=== PATIENT | male | born 1960 | race Caucasian/White ===

== ENCOUNTER 2019-05-09 10:24 | Emergency (ER) | payer SELFPAY ==
[~2019-05-09] VITALS: Ht 175.3 cm; Wt 108.9 kg
--- OUTSIDE RECORDS SUMMARY | 2019-05-09 10:30 | XMS REPORT ---
Author Author NATALYA KONG Organization [facility] Address [address] [place] [address] Care Team Providers Care Accountant Name Role Phone NATALYA KONG Unavailable PROBLEMS Unknown Problems ALLERGIES No Information ENCOUNTERS Encounter Location Date Diagnosis [facility] [address] [facility] [id number] [address] Sep, [facility] [address] [facility] [id number] [address] Sep, Wheezing R06.2 ; Pain in right ankle and joints of right foot M25.571 and Pain in left ankle and joints of left foot M25.572 IMMUNIZATIONS No Known Immunizations SOCIAL HISTORY Never Assessed REASON FOR VISIT Needs nebulizer PLAN OF CARE VITAL SIGNS MEDICATIONS Medication Instructions Dosage Frequency Start Date End Date Duration Status All-In-One Nebulizer System - by inhalation route give pt the smaller cheaper verson use to administer breathing treatments Sep, Active RESULTS No Results PROCEDURES No Known procedures INSTRUCTIONS MEDICATIONS ADMINISTERED No Known Medications MEDICAL (GENERAL) HISTORY Type Description Date Medical History asthma Medical History COPD Medical History Narcolepsy Surgical History Has had both feet and ankles shattered Hospitalization History surgery
--- OUTSIDE RECORDS SUMMARY | 2019-05-09 10:30 | XMS REPORT ---
Author Author NATALYA KONG Organization [facility] Address [address] [place] [address] Care Team Providers Care Mixing Machine Attendant Name Role Phone NATALYA KONG Unavailable PROBLEMS Unknown Problems ALLERGIES No Known Allergies ENCOUNTERS Encounter Location Date Diagnosis [facility] [address] [id number] [address] Sep, [facility] [address] [id number] [address] 07 Sep, 2018 Wheezing R06.2 ; Pain in right ankle and joints of right foot M25.571 and Pain in left ankle and joints of left foot M25.572 IMMUNIZATIONS No Known Immunizations SOCIAL HISTORY Never Assessed REASON FOR VISIT Establish Care Candis Angulo MA PLAN OF CARE Activity Details Follow Up 3 months or as indicated by lab Reason:COPD VITAL SIGNS Weight 248.1 lbs 2018-10-06 Temperature 97.1 degrees Fahrenheit 2018-10-06 Heart Rate 74 bpm 2018-10-06 Respiratory Rate 20 2018-10-06 Oximetry 93 % 2018-10-06 Blood pressure systolic 128 mmHg 2018-10-06 Blood pressure diastolic 64 mmHg 2018-10-06 MEDICATIONS Medication Instructions Dosage Frequency Start Date End Date Duration Status PredniSONE 20 mg Orally Once a day 2 tablets 24h Sep, Sep, 5 days Active Albuterol Sulfate (2.5 MG/3ML) 0.083% Inhalation Three times a day as needed 3 ml as needed Sep, Active ProAir HFA 108 (90 Base) MCG/ACT Inhalation every 4-6 hours as needed 2 puffs as needed Active Ibuprofen 600 MG Orally Three times a day 1 tablet with food or milk as needed 8h Sep, Oct, 30 days Active RESULTS No Results PROCEDURES No Known procedures INSTRUCTIONS MEDICATIONS ADMINISTERED No Known Medications MEDICAL (GENERAL) HISTORY Type Description Date Medical History asthma Medical History COPD Medical History Narcolepsy Surgical History Has had both feet and ankles shattered Hospitalization History surgery
--- NOTE | 2019-05-09 12:29 | Diagnostic Imaging Report ---
INDICATION: Left arm numbness. COMPARISON: No prior examinations are available for comparison. FINDINGS: The heart size is within normal limits. There is no overt failure pattern. There are nodular densities bilaterally projecting over the right upper and left lower lungs, best seen in the frontal projection. While these may be calcified, this cannot be confirmed at this exam and a chest CT is recommended given the absence of prior exams. These all measure less than 1 cm. The hilar and mediastinal contour is normal. No effusion or pneumothorax. There is some mild flattening of the diaphragms with air trapping not excluded. IMPRESSION: Small nodules bilaterally are indeterminate; however, given the absence of prior exams to confirm their long-term stability, a correlative chest CT is recommended. Called to Rudi at 12:26 p.m. By cvb. Dictated by: Dictated on workstation # [id number]
--- NOTE | 2019-05-09 12:32 | Diagnostic Imaging Report ---
CLINICAL INDICATION: Patient left arm numbness, weakness for one week. EXAM: Head CT without IV contrast. Axial CT scan of the cervical spine with sagittal and coronal reformations. COMPARISON: None. FINDINGS: Head CT: There is no evidence of acute cerebral infarct, intracranial hemorrhage, or gross mass effect. The brain parenchymal volume appears appropriate for patient's age. There are subtle focal areas of low-attenuation white matter changes involving both cerebral hemispheres, likely representing chronic small vessel ischemic disease. There is normal castro-white matter distinction. There is no significant midline shift or herniation. There is no evidence of hydrocephalus. The basal cisterns are unremarkable. There is a small area of extracranial soft tissue swelling or thickening in the right frontal region. Otherwise, the skull, extracranial soft tissue, and orbits are unremarkable. There is a small moderate-sized mucus retention cyst in left maxillary sinus. There is partial consolidation of right mastoid air cells. Cervical spine: There is no acute cervical spine fracture or dislocation. There are small spurs involving the anterior aspect of the mid to lower cervical spine. There is no significant bony central spinal canal or neural foramen narrowing. There is no significant neck soft tissue abnormality. Mild emphysematous changes involving both lung apices. IMPRESSION: 1: Unremarkable CT scan of the brain for age with no evidence of acute intracranial process. If there is concern for acute cerebral infarct, then MRI of the brain would better evaluate. 2: Mild cervical spine degenerative disease with no acute fracture or dislocation. 3: Left maxillary sinus mucus retention cyst and nonspecific partial consolidation of the right mastoid air cells. Dictated by: Dictated on workstation # [id number]
[2019-05-09] MEDS ORDERED: PRD20T PO (12:58)
[2019-05-09] MEDS ORDERED: RT-ALBUINH IH (12:58)
--- NOTE | 2019-05-09 13:01 | ED General ---
General Chief Complaint: Upper Extremity Stated Complaint: L ARM NUMBNESS Source of Information: Patient Exam Limitations: No Limitations History of Present Illness Date Seen by Provider: May 09, 2019 Time Seen by Provider: 10:32 Initial Comments This 59-year-old man presents to the emergency room with 2 separate complaints. First he has left upper extremity numbness and weakness that started several days ago. It first started in an ulnar nerve distribution in the or thin fifth finger. It then gradually progressed up the hand and forearm, and he now has paresthesia proximal to the elbow. 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 He denies any neck pain or injury. His second complaint is wheezing and cough. He sometimes coughs so hard that he has a syncopal episode. He has history of asthma but ran out of his albuterol inhaler. He has no primary care provider at this time but has been seen at [facility] in the past. He reports he is supposed to wear a CPAP but cannot afford it. Allergies and Home Medications Home Medications Albuterol Sulfate 1 Puff Puff, 2 PUFF IH Q4H PRN for WHEEZING 1 PUFF = 90 MCG Prescribed by: SALUD BARRETT on 05/09/19 1258 Prednisone 20 Mg Tab, 20 MG PO DAILY Prescribed by: SALUD BARRETT on 05/09/19 1258 Patient Home Medication List Home Medication List Reviewed: Yes Review of Systems Review of Systems Constitutional: no symptoms reported EENTM: no symptoms reported Respiratory: see HPI Cardiovascular: see HPI Gastrointestinal: no symptoms reported Genitourinary: no symptoms reported Musculoskeletal: no symptoms reported Skin: no symptoms reported Psychiatric/Neurological: See HPI Hematologic/Lymphatic: No Symptoms Reported Immunological/Allergic: no symptoms reported Past Vdbbvua-Wantov-Yjilnt Hx Past Med/Social Hx: Reviewed and Corrections made Patient Social History Recent Foreign Travel: No Contact w/Someone Who Travel: No Past Medical History Surgeries: Yes Appendectomy, Bowel Surgery, Orthopedic Respiratory: Yes Asthma, Sleep Apnea, COPD Cardiac: No Neurological: No Reproductive Disorders: No Genitourinary: No Gastrointestinal: No Musculoskeletal: No Endocrine: No HEENT: No Cancer: No Psychosocial: No Physical Exam Vital Signs Vital Signs - First Documented 05/09/19 05/09/19 10:30 13:12 Temp 97.0 Pulse 89 Resp 18 B/P (MAP) 144/99 (114) Pulse Ox 95 O2 Delivery Room Air Capillary Refill : Height, Weight, BMI Height: '" Weight: lbs. oz. kg; BMI Method: General Appearance: No Apparent Distress, WD/WN HEENT: PERRL/EOMI, Normal ENT Inspection Neck: Full Range of Motion, Normal Inspection, Non Tender Respiratory: No Accessory Muscle Use, No Respiratory Distress, Wheezing Cardiovascular: Regular Rate, Rhythm, No Edema, No Murmur Gastrointestinal: Non Tender, Soft Extremity: Normal Inspection, No Pedal Edema Neurologic/Psychiatric: Alert, Oriented x3, Normal Mood/Affect, chef french II-XII Norm as Tested, Motor Weakness (Left hand street worker) Skin: Normal Color, Warm/Dry Progress/Results/Core Measures Suspected Sepsis SIRS Temperature: Pulse: Respiratory Rate: Blood Pressure / Mean: Results/Orders My Orders Orders - SALUD BEATTY MD Ct Head/Cervical Spine Wo (05/09/19 10:51) Chest Pa/Lat (2 View) (05/09/19 10:51) Vital Signs/I&O 05/09/19 05/09/19 10:30 13:12 Temp 97.0 97.1 Pulse 89 90 Resp 18 18 B/P (MAP) 144/99 (114) 139/90 (106) Pulse Ox 95 O2 Delivery Room Air Capillary Refill : Progress Note : Progress Note CT head and C-spine showed no acute abnormalities or evidence of intracranial hemorrhage or ischemia. There was no evidence of spinal stenosis. Chest x-ray showed multiple pulmonary nodules. CT and labs were recommended. Patient declined stating he would like to do this in the outpatient setting. Prescriptions were provided. Patient is calling to make a follow-up appointment at [facility] for further evaluation. Diagnostic Imaging Diagonstic Imaging: Xray Plain Films/CT/US/NM/MRI: chest Comments NAME: [facility] REC#: [id number] PT STATUS: DEP ER : 1960 PHYSICIAN: SALUD BEATTY MD ADMIT DATE: 05/09/19/ER Signed Date of Exam: 05/09/19 CHEST PA/LAT (2 VIEW) INDICATION: Left arm numbness. COMPARISON: No prior examinations are available for comparison. FINDINGS: The heart size is within normal limits. There is no overt failure pattern. There are nodular densities bilaterally projecting over the right upper and left lower lungs, best seen in the frontal projection. While these may be calcified, this cannot be confirmed at this exam and a chest CT is recommended given the absence of prior exams. These all measure less than 1 cm. The hilar and mediastinal contour is normal. No effusion or pneumothorax. There is some mild flattening of the diaphragms with air trapping not excluded. IMPRESSION: Small nodules bilaterally are indeterminate; however, given the absence of prior exams to confirm their long-term stability, a correlative chest CT is recommended. Called to Rudi at 12:26 p.m. By cvb. Dictated by: Dictated on workstation # [id number] Dict: 05/09/19 1140 Trans: 05/09/191658 Interpreted by: LETICIA AVALOS Electronically signed by: LETICIA AVALOS 05/09/191658 Reviewed: Reviewed by Me Diagonstic Imaging: CT Plain Films/CT/US/NM/MRI: c-spine, head Comments NAME: [facility] REC#: [id number] PT STATUS: DEP ER : 1960 PHYSICIAN: SALUD BEATTY MD ADMIT DATE: 05/09/19/ER Signed Date of Exam: 05/09/19 CT HEAD/CERVICAL SPINE WO CLINICAL INDICATION: Patient left arm numbness, weakness for one week. EXAM: Head CT without IV contrast. Axial CT scan of the cervical spine with sagittal and coronal reformations. COMPARISON: None. FINDINGS: Head CT: There is no evidence of acute cerebral infarct, intracranial hemorrhage, or gross mass effect. The brain parenchymal volume appears appropriate for patient's age. There are subtle focal areas of low-attenuation white matter changes involving both cerebral hemispheres, likely representing chronic small vessel ischemic disease. There is normal castro-white matter distinction. There is no significant midline shift or herniation. There is no evidence of hydrocephalus. The basal cisterns are unremarkable. There is a small area of extracranial soft tissue swelling or thickening in the right frontal region. Otherwise, the skull, extracranial soft tissue, and orbits are unremarkable. There is a small moderate-sized mucus retention cyst in left maxillary sinus. There is partial consolidation of right mastoid air cells. Cervical spine: There is no acute cervical spine fracture or dislocation. There are small spurs involving the anterior aspect of the mid to lower cervical spine. There is no significant bony central spinal canal or neural foramen narrowing. There is no significant neck soft tissue abnormality. Mild emphysematous changes involving both lung apices. IMPRESSION: 1: Unremarkable CT scan of the brain for age with no evidence of acute intracranial process. If there is concern for acute cerebral infarct, then MRI of the brain would better evaluate. 2: Mild cervical spine degenerative disease with no acute fracture or dislocation. 3: Left maxillary sinus mucus retention cyst and nonspecific partial consolidation of the right mastoid air cells. Dictated by: Dictated on workstation # [id number] Dict: 05/09/19 1221 Trans: 05/09/19 1734 Interpreted by: TRICIA KRAUS MD Electronically signed by: TRICIA KRAUS MD 05/09/19 1734 Departure Impression Primary Impression: Weakness of left upper extremity Additional Impressions: Paresthesia of left upper extremity Asthma exacerbation Qualified Codes: J45.901 - Unspecified asthma with (acute) exacerbation Pulmonary nodules Disposition: HOME, SELF-CARE Condition: Stable Departure-Patient Inst. Decision time for Depature: 12:56 Referrals: [facility],LOCAL PHYSICIAN (PCP) Primary Care Physician Patient Instructions: Multiple Pulmonary Nodules Add. Discharge Instructions: Complete prednisone as prescribed. This will hopefully help reduce the symptoms in her left arm and improved your breathing. Use albuterol as previously prescribed for wheezing and shortness of breath. Work toward quitting smoking and seek help from your primary care provider if needed. Establish care with a primary care provider soon as possible and arrange follow- up for the pulmonary nodules seen on your chest x-ray. Return to care if you have worsening symptoms or develop new symptoms. Complete financial retirement plan specialist paperwork with [facility] as soon as possible. All discharge instructions reviewed with patient and/or family. Voiced understanding. Scripts Albuterol Sulfate (PROAIR HFA) 1 Puff Puff 2 PUFF IH Q4H PRN for WHEEZING, #1 PUFF 1 PUFF = 90 MCG Prov: SALUD BEATTY MD 05/09/19 Prednisone (Prednisone) 20 Mg Tab 20 MG PO DAILY, #5 TAB 0 Refills Prov: SALUD BEATTY MD 05/09/19 Copy Copies To 1: YANET ZARAGOZA JOSHUA T MD May 09, 2019 13:01
[2019-05-09 13:12] VITALS: BP 139/90
== END 2019-05-09 13:13 | disposition home or self-care (01) ==
LOC: ER 10:26
DX: M62.81 Muscle weakness (generalized) (principal); R20.2 Paresthesia of skin; J45.901 Unspecified asthma with (acute) exacerbation; R91.8 Other nonspecific abnormal finding of lung field; J44.9 Chronic obstructive pulmonary disease, unspecified; G47.30 Sleep apnea, unspecified; Z79.52 Long term (current) use of systemic steroids; Z90.49 Acquired absence of other specified parts of digestive tract; Z98.890 Other specified postprocedural states
CPT/HCPCS: 70450; 71046; 72125

== ENCOUNTER → 2019-06-17 | Outpatient (CLI) | payer SELFPAY ==
[~2019-06-17] MED LIST: CATHETER FLUSH 10 ML SYR IV PRN; HOLD METFORMIN - RECEIVED CONTRAST 20 ML VIAL IV SCH; IOHEXOL 350 MG/ML 100 ML (OMNIPAQUE 350) VIAL IV ONE; NS 100 ML (IVPB) BAG IV ONE; PRD20T PO; RT-ALBUINH IH
[2019-06-17 14:06] LABS: BILIRUBIN,TOTAL 0.5 MG/DL (0.1-1.0); CALCIUM 9.5 MG/DL (8.5-10.1); CREATININE SERUM 1.33 MG/DL (0.60-1.30); POTASSIUM 4.4 MMOL/L (3.6-5.0); TOTAL PROTEIN 7.6 GM/DL (6.4-8.2)
--- NOTE | 2019-06-17 15:04 | Diagnostic Imaging Report ---
PROCEDURE: CT chest with contrast only. TECHNIQUE: Multiple contiguous axial images were obtained through the chest after administration of intravenous contrast. Auto Exposure Controls were utilized during the CT exam to meet ALARA standards for radiation dose reduction. INDICATION: Pulmonary nodules. This study is performed for further evaluation. COMPARISON: Correlation is made with prior chest radiograph from 05/09/2019. No prior chest CT is available for comparison. FINDINGS: No axillary lymphadenopathy is detected. A lymph node in the right paratracheal location is mildly prominent at 1.7 x 1.0 cm. Calcified lymph node in the right [place] is seen. There are coronary arterial calcifications present. No pericardial or pleural fluid is identified. Right upper lobe calcified nodule is noted consistent with granuloma. This likely accounts for one of the nodules seen on chest x-ray. There are also calcified nodules in bilateral lower lobes, also likely accounting for the radiographic nodules. No noncalcified nodules or spiculated masses are seen. There are no infiltrates. Upper abdomen is unremarkable. IMPRESSION: Bilateral calcified nodules and right hilar calcified lymph node consistent with prior granulomatous exposure. No noncalcified nodules or spiculated masses are seen. Dictated by: Dictated on workstation # [id number]
== END ==
LOC: RAD 13:30
PROVIDERS: ATTEND Nurse Practitioner Family
DX: J44.9 Chronic obstructive pulmonary disease, unspecified (principal); R59.0 Localized enlarged lymph nodes; R91.8 Other nonspecific abnormal finding of lung field
CPT/HCPCS: 36415; 71260; 80053